=== PATIENT | male | born 1970 | race Caucasian/White ===

== ENCOUNTER 2024-10-02 16:37 | Emergency (ER) | payer MEDICAID, OTHER ==
[~2024-10-02] VITALS: Ht 170.2 cm; Wt 92.0 kg
[2024-10-02 17:00] VITALS: O2SAT 99
[2024-10-02 17:15] VITALS: TEMP 36.6
[2024-10-02 18:01] LABS: BASOPHILS % 0.9 % (0.0-2.0); EOSINOPHILS % 1.9 % (0.0-5.0); HEMATOCRIT. 46.9 % (42.0-52.0); HEMOGLOBIN. 15.2 g/dL (14.0-18.0); LYMPHOCYTES % 22.4 % (20.0-50.0); MEAN CORPUSCULAR HEMOGLOBIN 28.2 pg (28.0-32.0); MEAN CORPUSCULAR HGB CONC 32.5 g/dL (31.0-37.0); MEAN CORPUSCULAR VOLUME 86.9 fL (80.0-94.0); MEAN PLATELET VOLUME 8.6 fl (7.4-10.4); MONOCYTES % 6.6 % (2.0-8.0); NEUTROPHILS % 68.2 % (40.0-76.0); PLATELET 308 x1000/uL (130-400); RED CELL DISTRIBUTION WIDTH 13.5 % (11.6-14.6); WHITE BLOOD COUNT 7.6 x1000/uL (4.5-11.0)
[2024-10-02 18:14] LABS: POTASSIUM 3.7 mEq/L (3.5-5.1)
[2024-10-02 18:15] LABS: CALCIUM 9.5 mg/dL (8.7-10.4)
[2024-10-02] MEDS: KETOROLAC 30MG/ML VIAL IV STA (18:16)
[2024-10-02] MEDS: AMLODIPINE 10MG TABLET PO ONE (18:18)
[2024-10-02] MEDS: ACETAMINOPHEN 325MG TABLET PO ONE (18:19)
[2024-10-02 18:20] LABS: CREATININE 1.6 mg/dL (0.6-1.3)
[2024-10-02 18:34] VITALS: TEMP 97.8
[2024-10-02] MEDS ORDERED: CEPH500T MT (18:43)
[2024-10-02 18:45] LABS: ERYTHROCYTE SEDIMENTATION RATE 7 mm/hr (0-20)
[2024-10-02] MEDS: CEPHALEXIN 250MG CAPSULE PO ONE (18:45)
[2024-10-02 19:51] VITALS: BP 219/135; PULSE 100; RESP 22; O2SAT 99
== END 2024-10-02 19:52 | disposition home or self-care (01) ==
LOC: ER 16:37
DX: L03.115 Cellulitis of right lower limb (principal)
CPT/HCPCS: 99284; 96374; 80048; 85025; 85651; 36415; 73590; J1885

== ENCOUNTER 2025-05-20 17:21 | Emergency (ER) | payer OTHER ==
[~2025-05-20] VITALS: Ht 172.7 cm; Wt 91.0 kg
[~2025-05-20 17:21] MED LIST: CEPH500T MT
[2025-05-20 17:27] VITALS: O2SAT 100
[2025-05-20] MEDS ORDERED: AMOX-494 MT (18:16)
[2025-05-20] MEDS: CLONIDINE 0.1MG TABLET PO ONE (18:38)
[2025-05-20 19:15] VITALS: BP 170/110; PULSE 89; RESP 18; TEMP 36.9; O2SAT 100
[2025-05-20] MEDS ORDERED: AMLO2.5T45 MT (19:19)
== END 2025-05-20 19:31 | disposition home or self-care (01) ==
LOC: ER 17:21
DX: H66.93 Otitis media, unspecified, bilateral (principal); F15.90 Other stimulant use, unspecified, uncomplicated; Z79.899 Other long term (current) drug therapy
CPT/HCPCS: 99283